=== PATIENT | male | born 1960 | race Caucasian/White ===

== ENCOUNTER 2018-01-28 15:13 | Inpatient (IN) | payer OTHER ==
[~2018-01-28] VITALS: Ht 177.8 cm; Wt 85.9 kg
[~2018-01-28 15:13] MED LIST: FER325T PO; FURO20TA PO; HYD25T PO; ISOS20TA56 PO; METO-159 PO; POTA10TA51 PO; Pantoprazole Sodium Sesquihydr PO; WARF2TAB49 PO
[2018-01-28 16:09] LABS: Basophils # (auto) 0 uL; Basophils % (auto) 0.4 % (0.0-2.0); Eosinophils # (auto) 0.4 uL; Eosinophils % (auto) 5.4 % (0.0-7.0); Hematocrit 30.2 % (41.0-53.0); Lymphocytes # (auto) 0.4 uL; Lymphocytes % (auto) 6.9 % (10.0-50.0); Mean Corpuscular Hemoglobin 32.8 pg (28.0-32.0); Mean Corpuscular Hgb Conc. 33.1 g/dL (32.0-36.0); Mean Corpuscular Volume 99.1 fL (80.0-100.0); Monocytes # (auto) 0.5 uL; Monocytes % (auto) 7.3 % (0.0-12.0); Neutrophils # (auto) 5.2 uL; Nucleated Red Blood Cells % 0.1 %; Platelet Count (auto) 90 10^3/uL (140-450); Red Blood Cells 3.05 10^6/uL (4.5-5.90); Red Cell Distribution Width 17.1 % (11.8-14.3); White Blood Cell 6.5 10^3/uL (4.4-10.8)
[2018-01-28 16:29] LABS: Albumin 3.3 g/dL (3.4-5.0); BUN/Creatinine Ratio 8.1; Bilirubin, Total 1.1 mg/dL (0.2-1.0); Calcium 7.8 mg/dL (8.5-10.1); Potassium 3.3 mmol/L (3.5-5.1); Total Protein 7.8 g/dL (6.4-8.2)
[2018-01-28 17:31] LABS: INR 1.24 (0.9-1.15); Prothrombin Time 13.6 sec (9.37-12.3)
[2018-01-28 18:52] LABS: Urine Bacteria FEW /hpf (None Seen); Urine Blood 2+ /uL (Negative); Urine Budding Yeast MANY /hpf (None Seen); Urine WBC 833 /hpf (0 - 3); Urine WBC Clumps PRESENT /hpf (None Seen)
[2018-01-29] MEDS ORDERED: HYDROcodone-ACET 5/325MG TAB PO PRN (02:30)
[2018-01-29] MEDS ORDERED: NITROGLYCERIN 0.4 MG SL TAB SL PRN (02:30)
[2018-01-29] MEDS ORDERED: ONDANSETRON HCL 4 MG/2 ML VIAL IV PRN (02:30)
[2018-01-29] MEDS ORDERED: MORPHINE SULFATE 8mg/ml INJ SDV IV PRN ×2 (02:30)
[2018-01-29] MEDS ORDERED: ACETAMINOPHEN 500 MG TAB PO PRN (02:30)
[2018-01-29 05:21] LABS: Basophils # (auto) 0 uL; Basophils % (auto) 0.6 % (0.0-2.0); Eosinophils # (auto) 0.3 uL; Eosinophils % (auto) 7.2 % (0.0-7.0); Hematocrit 29.8 % (41.0-53.0); Hemoglobin 9.9 g/dL (13.5-17.5); Lymphocytes # (auto) 0.6 uL; Lymphocytes % (auto) 14.6 % (10.0-50.0); Mean Corpuscular Hemoglobin 32.8 pg (28.0-32.0); Mean Corpuscular Hgb Conc. 33.1 g/dL (32.0-36.0); Mean Corpuscular Volume 99.1 fL (80.0-100.0); Monocytes # (auto) 0.4 uL; Monocytes % (auto) 9.4 % (0.0-12.0); Neutrophils % (auto) 68.2 % (37.0-80.0); Nucleated Red Blood Cells % 0.1 %; Platelet Count (auto) 77 10^3/uL (140-450); Red Blood Cells 3.01 10^6/uL (4.5-5.90); Red Cell Distribution Width 17.4 % (11.8-14.3); White Blood Cell 4.4 10^3/uL (4.4-10.8)
[2018-01-29 05:36] LABS: BUN/Creatinine Ratio 9.1; Calcium 8.3 mg/dL (8.5-10.1); Potassium 3.5 mmol/L (3.5-5.1)
[2018-01-29 07:44] LABS: INR 1.19 (0.9-1.15); Partial Thromboplastin Time 30.1 sec (22.64-33.71)
[2018-01-29] MEDS: METOPROLOL TARTRATE 50 MG TAB PO SCH ×2 (10:53→21:40)
[2018-01-29] MEDS: cefTRIAXone 1GM/10ml IVPUSH 10 ML IV SCH (10:57)
[2018-01-29] MEDS ORDERED: INSLANTI SC (16:02)
[2018-01-29] MEDS ORDERED: HYDR-531 PO (16:04)
[2018-01-29 17:00] VITALS: BP 144/79
[2018-01-29] MEDS ORDERED: WARFARIN SODIUM 2.5 MG TAB PO ONE (17:00)
[2018-01-29 18:17] VITALS: BP 85/53
[2018-01-29] MEDS ORDERED: DEXTROSE (50%) 50ML SYRG IV PRN (21:15)
[2018-01-29 22:00] VITALS: BP 159/46
[2018-01-30] MEDS: ACCU-CHEK COMFORT CURVE STRIP VI SCH ×4 (00:57→17:57)
[2018-01-30 05:00] VITALS: BP 151/44
[2018-01-30 05:53] LABS: Albumin 3.3 g/dL (3.4-5.0); BUN/Creatinine Ratio 8.7; Bilirubin, Total 1.4 mg/dL (0.2-1.0); Calcium 8.3 mg/dL (8.5-10.1); Potassium 4.2 mmol/L (3.5-5.1); Total Protein 7.9 g/dL (6.4-8.2)
[2018-01-30 05:55] LABS: INR 1.24 (0.9-1.15); Partial Thromboplastin Time 30.1 sec (22.64-33.71); Prothrombin Time 13.6 sec (9.37-12.3)
[2018-01-30] MEDS: InsuLIN REG 1unit/0.01ml Soln (100units/ml) SC SCH ×4 (05:59→17:57)
[2018-01-30 09:00] VITALS: BP 161/48
[2018-01-30] MEDS: cefTRIAXone 1GM/10ml IVPUSH 10 ML IV SCH (09:52)
[2018-01-30] MEDS: METOPROLOL TARTRATE 50 MG TAB PO SCH ×2 (10:01→22:16)
[2018-01-30 13:00] VITALS: BP 159/49
[2018-01-30] MEDS: metroNIDAZOLE 500MG/100ML 100 ML IV SCH ×2 (14:00→22:00)
[2018-01-30 17:00] VITALS: BP 156/60
[2018-01-30] MEDS ORDERED: WARFARIN SODIUM 2.5 MG TAB PO ONE (17:00)
[2018-01-30] MEDS: VANCOMYCIN HCL 500MG/5ML ORAL SOL GT SCH ×2 (17:51→22:28)
[2018-01-30 22:28] VITALS: BP 158/69
[2018-01-31] MEDS: ACCU-CHEK COMFORT CURVE STRIP VI SCH ×3 (00:13→12:43)
[2018-01-31] MEDS: metroNIDAZOLE 500MG/100ML 100 ML IV SCH ×2 (05:30→14:00)
[2018-01-31] MEDS: VANCOMYCIN HCL 500MG/5ML ORAL SOL GT SCH ×2 (05:30→12:43)
[2018-01-31 05:32] VITALS: BP 145/35
[2018-01-31 05:49] LABS: Basophils # (auto) 0 uL; Basophils % (auto) 0.9 % (0.0-2.0); Eosinophils # (auto) 0.4 uL; Eosinophils % (auto) 7.6 % (0.0-7.0); Hematocrit 32.8 % (41.0-53.0); Hemoglobin 11.1 g/dL (13.5-17.5); Lymphocytes # (auto) 0.7 uL; Lymphocytes % (auto) 14.7 % (10.0-50.0); Mean Corpuscular Hemoglobin 33.5 pg (28.0-32.0); Mean Corpuscular Hgb Conc. 33.7 g/dL (32.0-36.0); Mean Corpuscular Volume 99.3 fL (80.0-100.0); Monocytes # (auto) 0.4 uL; Neutrophils # (auto) 3.2 uL; Neutrophils % (auto) 67.8 % (37.0-80.0); Nucleated Red Blood Cells % 0.2 %; Platelet Count (auto) 97 10^3/uL (140-450); Red Cell Distribution Width 17.5 % (11.8-14.3); White Blood Cell 4.7 10^3/uL (4.4-10.8)
[2018-01-31] MEDS: InsuLIN REG 1unit/0.01ml Soln (100units/ml) SC SCH ×3 (05:52→12:00)
[2018-01-31 06:00] LABS: INR 1.34 (0.9-1.15); Partial Thromboplastin Time 30.6 sec (22.64-33.71); Prothrombin Time 14.6 sec (9.37-12.3)
[2018-01-31 06:21] LABS: Albumin 3.1 g/dL (3.4-5.0); Bilirubin, Total 1.3 mg/dL (0.2-1.0); Calcium 8.5 mg/dL (8.5-10.1); Potassium 4.3 mmol/L (3.5-5.1); Total Protein 7.2 g/dL (6.4-8.2)
[2018-01-31 07:27] VITALS: BP 150/40
[2018-01-31] MEDS: cefTRIAXone 1GM/10ml IVPUSH 10 ML IV SCH (09:28)
[2018-01-31] MEDS: METOPROLOL TARTRATE 50 MG TAB PO SCH (09:29)
[2018-01-31 12:37] VITALS: BP 152/44
[2018-01-31 16:58] VITALS: BP 158/39
[2018-01-31] MEDS ORDERED: WARFARIN SODIUM 2.5 MG TAB PO ONE (17:00)
== END 2018-01-31 17:20 | disposition short-term general hospital (02) | DRG 291 ==
LOC: EDBD 15:13 → ER 15:15 → TELE-WESTW 15:16
PROVIDERS: ADMIT Nurse Practitioner Family; ATTEND Nurse Practitioner Family
DX: I13.2 Hypertensive heart and chronic kidney disease with heart failure and with stage 5 chronic kidney disease, or end stage renal disease (principal); I50.43 Acute on chronic combined systolic (congestive) and diastolic (congestive) heart failure; E11.22 Type 2 diabetes mellitus with diabetic chronic kidney disease; N18.6 End stage renal disease; A04.72 Enterocolitis due to Clostridium difficile, not specified as recurrent; D63.8 Anemia in other chronic diseases classified elsewhere; I48.91 Unspecified atrial fibrillation; R55 Syncope and collapse; N39.0 Urinary tract infection, site not specified; N49.2 Inflammatory disorders of scrotum; Z99.2 Dependence on renal dialysis; Z89.512 Acquired absence of left leg below knee; Z79.4 Long term (current) use of insulin; Z79.01 Long term (current) use of anticoagulants; Z79.899 Other long term (current) drug therapy; Z90.49 Acquired absence of other specified parts of digestive tract; Z90.79 Acquired absence of other genital organ(s)
CPT/HCPCS: 36415; 70450; 71045; 80048; 80053; 81001; 82040; 82962; 83880; 84484; 85025; 85610; 85730; 87040; 87045; 87493; 87899; 93005; 93886; 94761; 96374

== ENCOUNTER 2018-02-04 16:01 | Emergency (ER) | payer OTHER ==
[~2018-02-04] VITALS: Ht 177.8 cm; Wt 82.6 kg
[~2018-02-04 16:01] MED LIST changes: +HYDR-531 PO; +INSLANTI SC
[2018-02-04 17:35] LABS: Basophils # (auto) 0 uL; Basophils % (auto) 0.4 % (0.0-2.0); Eosinophils # (auto) 0.2 uL; Eosinophils % (auto) 4.5 % (0.0-7.0); Hematocrit 31.3 % (41.0-53.0); Hemoglobin 10.2 g/dL (13.5-17.5); Lymphocytes # (auto) 0.3 uL; Lymphocytes % (auto) 5.9 % (10.0-50.0); Mean Corpuscular Hemoglobin 33.1 pg (28.0-32.0); Mean Corpuscular Hgb Conc. 32.7 g/dL (32.0-36.0); Mean Corpuscular Volume 101.4 fL (80.0-100.0); Monocytes # (auto) 0.3 uL; Monocytes % (auto) 7.1 % (0.0-12.0); Neutrophils % (auto) 82.1 % (37.0-80.0); Nucleated Red Blood Cells % 0.1 %; Platelet Count (auto) 84 10^3/uL (140-450); Red Blood Cells 3.09 10^6/uL (4.5-5.90); Red Cell Distribution Width 18.5 % (11.8-14.3); White Blood Cell 4.9 10^3/uL (4.4-10.8)
[2018-02-04 17:47] LABS: INR 1.54 (0.9-1.15); Partial Thromboplastin Time 30.6 sec (22.64-33.71); Prothrombin Time 16.9 sec (9.37-12.3)
[2018-02-04 17:52] LABS: Albumin 3.3 g/dL (3.4-5.0); Bilirubin, Total 1.3 mg/dL (0.2-1.0); Calcium 7.9 mg/dL (8.5-10.1); Potassium 3.7 mmol/L (3.5-5.1); Total Protein 7.5 g/dL (6.4-8.2)
[2018-02-04 18:01] VITALS: BP 151/75
[2018-02-04 18:04] LABS: Urine Bacteria NONE SEEN /hpf (None Seen); Urine Blood 2+ /uL (Negative); Urine Budding Yeast LOADED /hpf (None Seen); Urine Specific Gravity 1.018 (1.001-1.035); Urine WBC 2111 /hpf (0 - 3); Urine WBC Clumps PRESENT /hpf (None Seen)
[2018-02-04] MEDS ORDERED: cefTRIAXone 1GM/10ml IVPUSH 10 ML IV ONE (19:45)
== END 2018-02-04 20:43 | disposition home or self-care (01) ==
LOC: EDBD 16:01 → EDUNIT# 16:01 → ER 16:01
DX: R55 Syncope and collapse (principal); I50.9 Heart failure, unspecified; N39.0 Urinary tract infection, site not specified; E83.51 Hypocalcemia; I13.2 Hypertensive heart and chronic kidney disease with heart failure and with stage 5 chronic kidney disease, or end stage renal disease; E11.22 Type 2 diabetes mellitus with diabetic chronic kidney disease; N18.6 End stage renal disease; I48.91 Unspecified atrial fibrillation; E11.65 Type 2 diabetes mellitus with hyperglycemia; Z45.2 Encounter for adjustment and management of vascular access device; Z79.4 Long term (current) use of insulin; Z79.01 Long term (current) use of anticoagulants; Z99.2 Dependence on renal dialysis; Z89.512 Acquired absence of left leg below knee
CPT/HCPCS: 36415; 71045; 80053; 81001; 83735; 83880; 84443; 84484; 85025; 85379; 85610; 85730; 93005; 96374

== ENCOUNTER 2018-03-29 19:05 | Emergency (ER) | payer OTHER ==
[~2018-03-29] VITALS: Ht 175.3 cm; Wt 72.6 kg
[2018-03-29 20:00] LABS: Basophils # (auto) 0 uL; Basophils % (auto) 0.4 % (0.0-2.0); Eosinophils # (auto) 0.1 uL; Eosinophils % (auto) 2.7 % (0.0-7.0); Hematocrit 31.7 % (41.0-53.0); Hemoglobin 10.8 g/dL (13.5-17.5); Lymphocytes # (auto) 0.4 uL; Lymphocytes % (auto) 9.4 % (10.0-50.0); Mean Corpuscular Hemoglobin 31.2 pg (28.0-32.0); Mean Corpuscular Hgb Conc. 33.9 g/dL (32.0-36.0); Mean Corpuscular Volume 92.1 fL (80.0-100.0); Monocytes # (auto) 0.3 uL; Monocytes % (auto) 7.3 % (0.0-12.0); Neutrophils # (auto) 3.6 uL; Neutrophils % (auto) 80.2 % (37.0-80.0); Nucleated Red Blood Cells % 0.1 %; Platelet Count (auto) 67 10^3/uL (140-450); Red Blood Cells 3.44 10^6/uL (4.5-5.90); Red Cell Distribution Width 15.2 % (11.8-14.3); White Blood Cell 4.5 10^3/uL (4.4-10.8)
[2018-03-29 20:22] LABS: Albumin 2.8 g/dL (3.4-5.0); BUN/Creatinine Ratio 7.8; Calcium 7.8 mg/dL (8.5-10.1); Magnesium 1.9 mg/dL (1.6-2.6); Potassium 3.5 mmol/L (3.5-5.1)
[2018-03-29 20:27] LABS: Bilirubin, Total 1.6 mg/dL (0.2-1.0); Total Protein 7.3 g/dL (6.4-8.2)
[2018-03-29 20:36] LABS: INR 1.96 (0.9-1.15); Partial Thromboplastin Time 35.9 sec (23.78-33.04); Prothrombin Time 20.2 sec (9.27-12.13)
[2018-03-29] MEDS ORDERED: LEVOFLOXACIN 500MG 100 ML IV ONE (20:45)
[2018-03-29 21:19] LABS: Urine Amorphous Crystal FEW /hpf (None Seen); Urine Bacteria MANY /hpf (None Seen); Urine Blood 2+ /uL (Negative); Urine Specific Gravity 1.014 (1.001-1.035); Urine WBC 55 /hpf (0 - 3); Urine WBC Clumps PRESENT /hpf (None Seen)
[2018-03-30 03:19] VITALS: BP 164/64
== END 2018-03-30 04:04 | disposition short-term general hospital (02) ==
LOC: EDBD 19:05 → ER 19:05
DX: R55 Syncope and collapse (principal); N39.0 Urinary tract infection, site not specified; I13.2 Hypertensive heart and chronic kidney disease with heart failure and with stage 5 chronic kidney disease, or end stage renal disease; N18.6 End stage renal disease; I50.9 Heart failure, unspecified; I48.91 Unspecified atrial fibrillation; Z90.89 Acquired absence of other organs
CPT/HCPCS: 36415; 70450; 71045; 80053; 81001; 83735; 83880; 84484; 85025; 85610; 85730; 93005; 96365; 99285; J1956

== ENCOUNTER 2018-11-30 21:06 | Emergency (ER) | payer MEDICARE, OTHER ==
[~2018-11-30] VITALS: Ht 177.8 cm; Wt 48.5 kg
[2018-11-30] MEDS ORDERED: CALCIUM CHLOR(10%) 100MG/ML 10ML SYRINGE IV ONE (21:10)
[2018-11-30] MEDS ORDERED: DOPamine 1600mCg/ml 400MG/250ml NSorD5 KIT/BAG IV ONE (21:10)
[2018-11-30] MEDS ORDERED: SODIUM BICARBONATE 8.4% INJ 50ML SYRINGE IV ONE ×2 (21:10)
[2018-11-30] MEDS ORDERED: DEXTROSE (50%) 50ML SYRG IV ONE (21:10)
[2018-11-30] MEDS ORDERED: EPINEPHrine HCL 1 MG/10 ML SYRG IV ONE ×2 (21:10)
[2018-11-30] MEDS ORDERED: SODIUM CHLORIDE 0.9% 500 ML IV ONE (22:12)
[2018-11-30] MEDS ORDERED: ONDANSETRON HCL 4 MG/2 ML VIAL IV ONE (22:15)
[2018-12-01 00:48] LABS: Hemoglobin 7.6 g/dL (13.5-17.5); White Blood Cell 12.5 10^3/uL (4.4-10.8)
[2018-12-01 00:50] LABS: Hematocrit 23.3 % (41.0-53.0); Mean Corpuscular Hemoglobin 31.1 pg (28.0-32.0); Mean Corpuscular Hgb Conc. 32.6 g/dL (32.0-36.0); Mean Corpuscular Volume 95.6 fL (80.0-100.0); Platelet Count (auto) 84 10^3/uL (140-450); Red Blood Cells 2.43 10^6/uL (4.5-5.90)
[2018-12-01 00:51] LABS: Red Cell Distribution Width 22.9 % (11.8-14.3)
[2018-12-01 00:52] LABS: Basophils % (manual) 0 (0.0-2.0); Blast Cells 0; Eosinophils % (manual) 0 (0-7); Metamyelocytes % 0; Myelocytes % 0; Promyelocytes % 0; Reactive Lymphocytes 0
[2018-12-01 01:00] LABS: INR 1.41 (0.9-1.15); Partial Thromboplastin Time 29.4 sec (23.78-33.04); Prothrombin Time 14.8 sec (9.27-12.13)
[2018-12-01 01:06] LABS: Albumin 2.2 g/dL (3.4-5.0); BUN/Creatinine Ratio 7.7; Calcium 7.6 mg/dL (8.5-10.1); Magnesium 2.5 mg/dL (1.6-2.6)
[2018-12-01 01:11] LABS: Bilirubin, Total 3.5 mg/dL (0.2-1.0); Total Protein 6.9 g/dL (6.4-8.2)
[2018-12-01 01:18] LABS: Potassium 5.6 mmol/L (3.5-5.1)
[2018-12-01] MEDS ORDERED: CALCIUM GLUC 4.65meq/50ml D5AE 50 ML IV ONE (01:30)
[2018-12-01] MEDS ORDERED: InsuLIN REG 1unit/0.01ml Soln (100units/ml) IV ONE (01:30)
[2018-12-01] MEDS ORDERED: DEXTROSE (50%) 50ML SYRG IV ONE (01:30)
[2018-12-01 01:48] LABS: Amylase 33 U/L (25-115); Lipase 86 U/L (73-393)
[2018-12-01 01:58] LABS: Lymphocytes % (manual) 2 (10.0-50.0)
[2018-12-01 02:00] LABS: Band Neutrophils % (manual) 7; Monocytes % (manual) 6 (0-12)
[2018-12-01 04:42] LABS: BUN/Creatinine Ratio 8.3; Calcium 9.8 mg/dL (8.5-10.1); Potassium 4.7 mmol/L (3.5-5.1)
[2018-12-01] MEDS ORDERED: OCTREOTIDE ACETATE 500 MCG in SODIUM CHL 0.9% 99 ML IV SCH (06:00)
[2018-12-01] MEDS ORDERED: OCTREOTIDE ACETATE 100 MCG in SODIUM CHL 0.9% 50 ML IV ONE (06:00)
[2018-12-01] MEDS ORDERED: VANCOMYCIN 1GM/250ML 250 ML IV ONE (06:15)
[2018-12-01 06:28] VITALS: BP 108/46
[2018-12-01] MEDS ORDERED: DEXTROSE 50% SYRINGE 50 ML IV ONE (08:27)
[2018-12-01] MEDS ORDERED: DOPamine 1600MCG/ML D5W 250 ML IV ONE (08:30)
[2018-12-01] MEDS ORDERED: DEXTROSE 10% 1,000 ML IV ONE (08:36)
[2018-12-01 09:13] LABS: Basophils # (auto) 0 uL; Eosinophils # (auto) 0 uL; Hemoglobin 8.4 g/dL (13.5-17.5); Nucleated Red Blood Cells % 0.1 %; White Blood Cell 13.9 10^3/uL (4.4-10.8)
[2018-12-01 09:17] LABS: Basophils % (auto) 0.2 % (0.0-2.0); Hematocrit 26.6 % (41.0-53.0); Lymphocytes # (auto) 0.6 uL; Mean Corpuscular Hemoglobin 31.1 pg (28.0-32.0); Mean Corpuscular Hgb Conc. 31.6 g/dL (32.0-36.0); Mean Corpuscular Volume 98.4 fL (80.0-100.0); Monocytes # (auto) 1.3 uL; Monocytes % (auto) 9.5 % (0.0-12.0); Neutrophils % (auto) 86.3 % (37.0-80.0); Platelet Count (auto) 115 10^3/uL (140-450); Red Blood Cells 2.71 10^6/uL (4.5-5.90)
[2018-12-01 09:26] LABS: Red Cell Distribution Width 23.2 % (11.8-14.3)
[2018-12-01 10:16] LABS: Calcium 7.8 mg/dL (8.5-10.1)
[2018-12-01 10:25] LABS: Potassium 5.7 mmol/L (3.5-5.1)
== END 2018-12-01 17:44 | disposition expired ==
LOC: EDBD 21:06 → ER 21:09
DX: K92.2 Gastrointestinal hemorrhage, unspecified (principal); E87.5 Hyperkalemia; D64.9 Anemia, unspecified; E11.22 Type 2 diabetes mellitus with diabetic chronic kidney disease; I13.2 Hypertensive heart and chronic kidney disease with heart failure and with stage 5 chronic kidney disease, or end stage renal disease; I50.9 Heart failure, unspecified; N18.6 End stage renal disease; R18.8 Other ascites; I48.91 Unspecified atrial fibrillation; Z87.891 Personal history of nicotine dependence; Z99.2 Dependence on renal dialysis; Z79.4 Long term (current) use of insulin
CPT/HCPCS: 31500; 36415; 74176; 80048; 80053; 82150; 82270; 83690; 83735; 84484; 85007; 85025; 85027; 85610; 85730; 86850; 86900; 86901; 92950; 93005; 96365; 96367; 96375; 99291; J0171; J0610; J1265; J1815; J2405; J3370; J7030; J7042